=== PATIENT | female | born 1985 | race Caucasian/White ===

== ENCOUNTER 2021-04-23 15:52 | Inpatient (IN) | payer BC ==
[~2021-04-23] VITALS: Ht 157.5 cm; Wt 65.8 kg
[2021-04-23 15:55] VITALS: BP 147/74
--- NOTE | 2021-04-23 16:09 | NUR ---
TO ER BED 12
[2021-04-23] MEDS ORDERED: IBUP-2213 PO (16:22)
--- NOTE | 2021-04-23 16:30 | NUR ---
ULTRASOUND AT BED SIDE, ERMD NOTIFIED.
--- NOTE | 2021-04-23 16:37 | NUR ---
DR. MACKENZIE IS PERFORMING PELVIC EXAM AT BEDSIDE WITH FEMALE CHAPPERONE.
--- NOTE | 2021-04-23 16:40 | NUR ---
LAB SPECIMEN COLLECTED AND GIVEN TO LAB
[2021-04-23] MEDS ORDERED: ACETAMINOPHEN EXTRA STRENGTH 500 MG TAB ONE (16:41)
[2021-04-23] MEDS ORDERED: NACL 0.9% 1,000 ML IV ONE (16:45)
--- NOTE | 2021-04-23 16:50 | NUR ---
ULTRASOUND AT PATIENT BEDSIDE
--- NOTE | 2021-04-23 16:57 | NUR ---
MEAGAN SPECIMEN COLLECTED AND TAKEN TO LAB
[2021-04-23 17:22] LABS: BASOPHILS % (AUTO) 0.3 % (0.0-2.0); EOSINOPHILS % (AUTO) 0.5 % (0.0-4.0); HEMATOCRIT 35.5 % (36-48); LYMPHOCYTES # (AUTO) 1.7 K/uL (2.5-16.5); LYMPHOCYTES % (AUTO) 16.8 % (20.5-51.1); MEAN CORPUSCULAR HEMOGLOBIN 28 pg (27-31); MEAN CORPUSCULAR HGB CONC 34 g/dL (33-37); MONOCYTES # (AUTO) 0.6 K/uL (0.8-1.0); MONOCYTES % (AUTO) 5.9 % (1.7-9.3); NEUTROPHILS # (AUTO) 7.5 K/uL (1.8-7.7); NEUTROPHILS % (AUTO) 76.5 % (42.2-75.2); PLATELET COUNT (AUTO) 190 K/uL (140-450); RED BLOOD CELL COUNT(AUTO) 4.33 MIL/uL (4.20-5.40); RED CELL DISTRIBUTION WIDTH 14.6 % (11.6-13.7); WHITE BLOOD COUNT (AUTO) 9.8 K/uL (4.8-10.8)
--- NOTE | 2021-04-23 17:35 | NUR ---
# 16 FR Rodriguez catheter with 10 ml utilizing sterile technique. Immediate return of 20 ml CLEAR urine noted. Bedside drainage bag placed below level of bladder. Urine sample collected and sent to lab. Pt tolerated procedure WELL.
[2021-04-23] MEDS ORDERED: ACETAMINOPHEN 325 MG TAB PO ONE (17:50)
[2021-04-23 18:21] LABS: ALBUMIN 3.4 g/dL (3.4-5.0); CARBON DIOXIDE 22.5 mmol/L (21-32); CREATININE 0.7 mg/dL (0.6-1.3); POTASSIUM 3.5 mmol/L (3.5-5.1); TOTAL BILIRUBIN 0.3 mg/dL (0.0-1.0)
--- NOTE | 2021-04-23 18:55 | NUR ---
LABS DRAWN AND GIVEN TO PAUL HUMPHREY TECH
[2021-04-23 19:07] LABS: BASOPHILS % (AUTO) 0.3 % (0.0-2.0); EOSINOPHILS % (AUTO) 0.3 % (0.0-4.0); HEMATOCRIT 28.7 % (36-48); HEMOGLOBIN 9.8 g/dL (12.0-16.0); LYMPHOCYTES # (AUTO) 1.6 K/uL (2.5-16.5); LYMPHOCYTES % (AUTO) 13.6 % (20.5-51.1); MEAN CORPUSCULAR HEMOGLOBIN 28 pg (27-31); MEAN CORPUSCULAR HGB CONC 34 g/dL (33-37); MEAN CORPUSCULAR VOLUME 81.7 fL (80-94); MONOCYTES # (AUTO) 0.6 K/uL (0.8-1.0); MONOCYTES % (AUTO) 4.9 % (1.7-9.3); NEUTROPHILS # (AUTO) 9.7 K/uL (1.8-7.7); NEUTROPHILS % (AUTO) 80.9 % (42.2-75.2); PLATELET COUNT (AUTO) 162 K/uL (140-450); RED BLOOD CELL COUNT(AUTO) 3.51 MIL/uL (4.20-5.40); RED CELL DISTRIBUTION WIDTH 14.5 % (11.6-13.7); WHITE BLOOD COUNT (AUTO) 11.9 K/uL (4.8-10.8)
[2021-04-23] MEDS ORDERED: ONDANSETRON 4 MG/2 ML VIAL ONE (19:17)
--- NOTE | 2021-04-23 19:21 | NUR ---
Pt report given to RABIA RENEE. Transfer of care at this time.
--- NOTE | 2021-04-23 19:22 | NUR ---
PT HAD AN EPISODE OF VOMITING. AT BEDSIDE, VERBAL ORDER FOR IVP ZOFRAN 4MG/ML.ORDER CARRIED OUT. PT CLEANED UP AND CHANGED AND REPOSITIONED. ALL NEEDS MET AT THIS TIME. BED LOCKED IN LOWEST POSITION, SIDE RAILS X2.
--- NOTE | 2021-04-23 19:23 | NUR ---
Chart checked and completed. The patient's care was reviewed and supervised by Maxine Lara, RN, RN.
[2021-04-23] MEDS ORDERED: ONDANSETRON 4 MG/2 ML VIAL IVP ONE (19:50)
[2021-04-23] MEDS ORDERED: MISOPROSTOL 100 MCG TAB PO ONE (20:45)
--- NOTE | 2021-04-23 21:22 | NUR ---
UPDATED ON PT. Addendum: 04/23/21 at 2123 by [facility] 'S MED STUDENT UPDATED ON PT STATUS.
[2021-04-23] MEDS ORDERED: ACETAMINOPHEN 325 MG TAB PO PRN (21:45)
[2021-04-23] MEDS ORDERED: ONDANSETRON 4 MG/2 ML VIAL IVP PRN (21:45)
[2021-04-23] MEDS ORDERED: MAGNESIUM OXIDE 400 MG TAB PO PRN (21:45)
[2021-04-23] MEDS ORDERED: HYDROcodone/APAP 5/325 MG 1 TAB TAB PO PRN (21:45)
[2021-04-23] MEDS ORDERED: MORPHINE SULFATE 4 MG/ML SYR IVP PRN (21:45)
[2021-04-23] MEDS ORDERED: POTASSIUM CHLORIDE 10 MEQ TABER PO PRN (21:45)
[2021-04-23] MEDS ORDERED: MAG SULF 2000 MG/WATER PREMIX 50 ML IV PRN (21:45)
[2021-04-23] MEDS ORDERED: KCL 20 MEQ/WATER INJ PREMIX 200 ML IV PRN (21:45)
[2021-04-23] MEDS: NACL 0.9% 1,000 ML IV SCH (22:28)
--- NOTE | 2021-04-23 22:29 | NUR ---
PT CHANGED, SATURDATED A PAD, CLOTS PRESENT. VSS. PT IS IN STABLE CONDITION. PT COMPLAINED OF BACK AND ABD PAIN. PT REPOSITIONED, PAIN CONTINUED. PT HAS PAIN MEDICATION PRN. ORDERS CARRIED OUT.
--- NOTE | 2021-04-23 23:44 | NUR ---
PT REPORTED FEELING NAUSEOUS AND WEAK. PT SATURATED ANOTHER BED PAD, A FEW CLOTS PRESENT. BP DROPPED 89/54 PT REPOSITIONED BP AT 82/44.
[2021-04-23 23:45] LABS: APPEARANCE,URINE CLEAR (CLEAR); BILIRUBIN,URINE NEGATIVE (NEGATIVE); BLOOD, URINE 3+ (NEGATIVE); COLOR,URINE RED (YELLOW); LEUKOCYTE ESTERASE ,URINE TRACE (NEGATIVE); NITRITE, URINE POSITIVE (NEGATIVE); UGLUCOSE TRACE (NEGATIVE)
[2021-04-23 23:46] LABS: RBC,URINE TOO NUMEROUS TO COUN /HPF (0-5); WBC,URINE 0-5 /HPF (0-5)
--- NOTE | 2021-04-23 23:51 | NUR ---
PAGED DR. GAMEZ
[2021-04-24] MEDS ORDERED: NACL 0.9% 1,000 ML IV ONE
--- NOTE | 2021-04-24 | NUR ---
RECEIVED FOLLOWING ORDERS FROM - REPEAT CBC STAT AND 1L BOLUS OF NS. ORDERS CARRIED OUT.
[2021-04-24 00:09] LABS: BASOPHILS % (AUTO) 0.3 % (0.0-2.0); EOSINOPHILS % (AUTO) 0.3 % (0.0-4.0); HEMATOCRIT 25.2 % (36-48); HEMOGLOBIN 8.6 g/dL (12.0-16.0); LYMPHOCYTES # (AUTO) 1.3 K/uL (2.5-16.5); LYMPHOCYTES % (AUTO) 18.9 % (20.5-51.1); MEAN CORPUSCULAR HEMOGLOBIN 28 pg (27-31); MEAN CORPUSCULAR HGB CONC 34 g/dL (33-37); MEAN CORPUSCULAR VOLUME 81.5 fL (80-94); MONOCYTES # (AUTO) 0.4 K/uL (0.8-1.0); MONOCYTES % (AUTO) 5.4 % (1.7-9.3); NEUTROPHILS # (AUTO) 5.1 K/uL (1.8-7.7); NEUTROPHILS % (AUTO) 75.1 % (42.2-75.2); PLATELET COUNT (AUTO) 146 K/uL (140-450); RED BLOOD CELL COUNT(AUTO) 3.09 MIL/uL (4.20-5.40); RED CELL DISTRIBUTION WIDTH 14.6 % (11.6-13.7); WHITE BLOOD COUNT (AUTO) 6.8 K/uL (4.8-10.8)
--- NOTE | 2021-04-24 00:26 | NUR ---
PAGED FOR HGB UPDATE.
--- NOTE | 2021-04-24 02:55 | NUR ---
PT CHANGED AND REPOSITIONED. NO CLOTS PRESENT, BLEEDING CONTINUES BUT NOT SATURATION. VSS. PT IS IN STABLE CONDITION. BED LOCKED IN LOWEST POSITION, SIDE RAILS X2.
--- NOTE | 2021-04-24 04:14 | NUR ---
LAB AT BEDSIDE.
[2021-04-24 04:30] LABS: BASOPHILS % (AUTO) 0.2 % (0.0-2.0); HEMATOCRIT 21.7 % (36-48); HEMOGLOBIN 7.4 g/dL (12.0-16.0); LYMPHOCYTES # (AUTO) 0.9 K/uL (2.5-16.5); LYMPHOCYTES % (AUTO) 12.7 % (20.5-51.1); MEAN CORPUSCULAR HEMOGLOBIN 28 pg (27-31); MEAN CORPUSCULAR HGB CONC 34 g/dL (33-37); MONOCYTES # (AUTO) 0.2 K/uL (0.8-1.0); MONOCYTES % (AUTO) 3.5 % (1.7-9.3); NEUTROPHILS # (AUTO) 5.7 K/uL (1.8-7.7); NEUTROPHILS % (AUTO) 83.6 % (42.2-75.2); PLATELET COUNT (AUTO) 132 K/uL (140-450); RED BLOOD CELL COUNT(AUTO) 2.65 MIL/uL (4.20-5.40); RED CELL DISTRIBUTION WIDTH 14.6 % (11.6-13.7); WHITE BLOOD COUNT (AUTO) 6.8 K/uL (4.8-10.8)
[2021-04-24 04:48] LABS: ALBUMIN 2.5 g/dL (3.4-5.0); ANION GAP 11.3 (8-16); CARBON DIOXIDE 20.3 mmol/L (21-32); CREATININE 0.6 mg/dL (0.6-1.3); MAGNESIUM 1.8 mg/dL (1.8-2.4); POTASSIUM 3.6 mmol/L (3.5-5.1); TOTAL BILIRUBIN 0.3 mg/dL (0.0-1.0)
--- NOTE | 2021-04-24 04:59 | NUR ---
PT CHANGED, BLEEDING CONTINUES. NO CLOTS PRESENT. VSS. PT IS IN STABLE CONDITION. ALL NEEDS MET AT THIS TIME. BED LOCKED IN LOWEST POSITION, SIDE RAILS X2.
--- NOTE | 2021-04-24 05:05 | NUR ---
PAGED ABOUT LAB VALUES. WAITING FOR CALL BACK.
--- NOTE | 2021-04-24 05:07 | NUR ---
RECEIVED FOLLOWING ORDERS FROM - BELL AND SCREEN FOR 3 UNITS, FOR NOW TRANSFUSE 1 UNIT. ORDERS CARRIED.
--- NOTE | 2021-04-24 05:20 | NUR ---
BLOOD COLLECTED AND GIVEN TO MONIKA.
--- NOTE | 2021-04-24 05:30 | NUR ---
CONSENT OBTAINED FOR BLOOD.
[2021-04-24 05:36] LABS: PROTHROMBIN TIME 10.7 secs (10.8-13.4)
--- NOTE | 2021-04-24 06:49 | NUR ---
f/c output of 800cc. pt changed, no clots present. bleeding continues.
--- NOTE | 2021-04-24 07:17 | NUR ---
REPORT GIVEN TO RABIA SELLERS. TRANSFER OF CARE AT THIS TIME.
--- NOTE | 2021-04-24 07:17 | NUR ---
Report and continuation of care received from RABIA Persaud
--- NOTE | 2021-04-24 07:40 | NUR ---
Patient states headache at this time. Tylenol PRN to be given.
--- NOTE | 2021-04-24 08:30 | NUR ---
MRSA walked to lab and handed to CPT Jennifer
--- NOTE | 2021-04-24 08:32 | NUR ---
Blood bank called states blood is ready.
[2021-04-24] MEDS: DOCUSATE SODIUM 100 MG GELCAP PO SCH (08:40)
--- NOTE | 2021-04-24 08:50 | NUR ---
Consent signed per patient agreeing to administration of blood. Blood has been type and crossmatched. Blood sent from blood bank. Information on unit of blood checked against patient wristband at bedside by two nurses. All information matches. Patient or responsible alliance party informed of potential complications associated with blood transfusion. Informed of possible transfusion reaction symptoms. Aware of need to notify nurse at once of itching, shortness of breath, flushing, feeling of impending doom, or other symptoms not previously present. Vital signs taken within 5 minutes prior to initiation of transfusion. RN will remain with patient for first 15 minutes of transfusion at which time vital signs will be re-assessed.
--- NOTE | 2021-04-24 09:10 | NUR ---
Pt reports + relief to headache 3/10 at this time. All pt needs met.
--- NOTE | 2021-04-24 09:30 | NUR ---
Pt denies any SOB, chills, hives, chest pain. Blood transfusion continued. monitor and storage bin tender in place. VSS RR even/unlabored SpO2 100% on room air.
--- NOTE | 2021-04-24 10:00 | NUR ---
Patient states saturated corina. Female RN back sizer
[2021-04-24] MEDS: NACL 0.9% 1,000 ML IV SCH ×2 (11:20→22:45)
[2021-04-24] MEDS ORDERED: MISOPROSTOL 100 MCG TAB PO SCH (12:00)
--- NOTE | 2021-04-24 14:47 | NUR ---
BP cuff 105/37 on L arm. Patient denies dizziness, BAEZ, nausea, vomiting, fever/chills, chest pain, SOB, blurry vision. monitoring manager in place. Bed locked in lowest position, side rails x 1.
--- NOTE | 2021-04-24 15:33 | NUR ---
PATIENT HAS BEEN SCREENED AND CATEGORIZED LOW NUTRITION RISK. PATIENT WILL BE SEEN WITHIN 7 DAYS OF ADMISSION. 04/30/[address]
--- NOTE | 2021-04-24 15:55 | NUR ---
Ptaient with both eyes closed resting in position of comfort. monitoring coordinator in place. Pt denies any symptoms at this time. Bed locked in lowest position, side rails x 1.
--- NOTE | 2021-04-24 16:21 | NUR ---
Report given to RABIA Padilla.
--- NOTE | 2021-04-24 16:25 | NUR ---
600mL removed from Rodriguez catheter and discarded.
--- NOTE | 2021-04-24 16:30 | NUR ---
Patient will be admitted to care of Dr. Byers. Admited to [facility]. Will go to room 119B. Belongings list completed. Report to RABIA Padilla
--- NOTE | 2021-04-24 16:35 | NUR ---
RECEIVED PT FROM ER NURSE FOR CONTINUITY OF CARE. PT ARRIVED VIA WHEELCHAIR AND TRANSFERRED TO BED. PT STATES SHE IS FEELING DIZZY. PT NOW IN BED RESTING COMFORTABLY. A&OX4. ANSWERS QUESTIONS APPROPRIATELY. DENIES ANY PAIN. INTERMITTENT CRAMP IN LOWER STOMACH STATED BY PT. PT IS AMBULATORY INDEPENDENTLY. BROWN CATH IN PLACE. DIAPER IN PLACE. MINIMAL BLOOD NOTED ON DIAPER. PT STATES SHE ONLY CHANGED PAD ONCE TODAY WITH MODERATE AMOUNT OF BLOOD ON PAD. PT IS STABLE. VS ARE STABLE. PLAN OF CARE DISCUSSED.
[2021-04-24 16:40] VITALS: BP 100/56
--- NOTE | 2021-04-24 17:51 | NUR ---
CALLED BLOOD BANK TO ASK IF THE OTHER UNIT OF BLOOD WAS READY FOR THE PT. MESSAGED DR. PATE TO ASK IF HE WOULD LIKE ME TO GIVE THE SECOND UNIT OF BLOOD OR RECHECK THE CBC PRIOR TO ADMINISTRATION OF BLOOD. WILL WAIT FOR RESPONSE.
--- NOTE | 2021-04-24 17:57 | NUR ---
RECEIVED MESSAGE BACK FROM DR. PATE TO GIVE THE SECOND UNIT OF BLOOD. WILL SWATCH CUTTER FROM BLOOD BANK SHORTLY.
[2021-04-24] MEDS: MISOPROSTOL 100 MCG TAB PO SCH (18:30)
--- NOTE | 2021-04-24 18:30 | NUR ---
BLOOD TRANSFUSION STARTED. VITAL SIGNS ARE STABLE AT THIS TIME. BREATHING UNLABORED ON RA. IV IS PATENT AND INFUSING BLOOD PRODUCT. VERIFIED BY SIOBHAN CAMARILLO. WILL CONTINUE TO MONITOR PT PER PROTOCOL.
--- NOTE | 2021-04-24 19:06 | NUR ---
WILL ENDORSE PT TO CERTIFIED LEGAL INVESTIGATOR NURSE FOR CONTINUITY OF CARE. PT IS STABLE. BLOOD TRANSFUSION STILL INFUSING. NO ADVERSE REACTIONS NOTED. PLAN OF CARE DISCUSSED.
--- NOTE | 2021-04-24 19:15 | NUR ---
RECD. RESTING IN BED, AWAKE, A/OX4. RESPIRATION EVEN AND UNLABORED. IV OF NS INFUSING AT 80 ML/HR, RIGHT AC G18. BLOOD TRANSFUSION ON GOING AT 100 ML/HR AT THE LEFT ACG18. INDEPENDENT, AMBULATORY TO THE BR. WILL CONTINUE TO MONITOR FOR ANY REACTION. DENIES PAIN 0/10.
[2021-04-24 20:00] VITALS: BP 102/56
--- NOTE | 2021-04-24 23:55 | NUR ---
FOLLOW UP WITH BLOOD BANK STAFF, REGARDING THE THIRD UNIT OF PACKED CELLS TO BE INFUSED FOR PATIENT. STATED THERE'S NO AVAILABLE BLOOD NOW, [facility] IS NOT GIVING BLOOD NOW UNLESS IT IS AN EMERGENCY. ORDERED H & H FOR PATIENT. CHARGE NURSE MANUELITO BARILLAS.
[2021-04-25] VITALS: BP 99/62
[2021-04-25 00:14] LABS: HEMATOCRIT 26.4 % (36-48)
--- NOTE | 2021-04-25 01:20 | NUR ---
INFORMED DR. REY REGARDING ONLY TWO UNIT PACKED CELLS INFUSED. STATED THAT IS OK.
[2021-04-25] MEDS: MISOPROSTOL 100 MCG TAB PO SCH ×3 (01:53→12:35)
--- NOTE | 2021-04-25 02:01 | NUR ---
Patient's Plan of Care was discussed and reviewed with OFFENDER EMPLOYMENT SPECIALIST: YOSELIN FRANKLIN
--- NOTE | 2021-04-25 03:30 | NUR ---
AMBULATED TO TO HAVE BM. PASSED OUT A BIG BLOOD CLOT, VERBALIZED IT COMES OUT OF HER VAGINA. CHANGED PADS, NOTED ONLY MODERATE THIN AMOUNT OF BLOOD IN THE PADS.
--- NOTE | 2021-04-25 05:30 | NUR ---
RESTING IN BED, NO RESPIRATORY DISTRESS NOTED. CONDITION REMAIN STABLE.
[2021-04-25 05:35] LABS: BASOPHILS % (AUTO) 0.3 % (0.0-2.0); EOSINOPHILS # (AUTO) 0.1 K/uL (0-0.4); EOSINOPHILS % (AUTO) 0.9 % (0.0-4.0); HEMATOCRIT 27.5 % (36-48); HEMOGLOBIN 9.5 g/dL (12.0-16.0); LYMPHOCYTES # (AUTO) 1.6 K/uL (2.5-16.5); LYMPHOCYTES % (AUTO) 24.3 % (20.5-51.1); MEAN CORPUSCULAR HEMOGLOBIN 29 pg (27-31); MEAN CORPUSCULAR HGB CONC 35 g/dL (33-37); MEAN CORPUSCULAR VOLUME 84.1 fL (80-94); MONOCYTES # (AUTO) 0.4 K/uL (0.8-1.0); MONOCYTES % (AUTO) 6.1 % (1.7-9.3); NEUTROPHILS # (AUTO) 4.5 K/uL (1.8-7.7); NEUTROPHILS % (AUTO) 68.4 % (42.2-75.2); PLATELET COUNT (AUTO) 118 K/uL (140-450); RED BLOOD CELL COUNT(AUTO) 3.27 MIL/uL (4.20-5.40); WHITE BLOOD COUNT (AUTO) 6.5 K/uL (4.8-10.8)
[2021-04-25 05:58] LABS: ALBUMIN 2.7 g/dL (3.4-5.0); ANION GAP 11.4 (8-16); CREATININE 0.6 mg/dL (0.6-1.3); POTASSIUM 3.4 mmol/L (3.5-5.1); TOTAL BILIRUBIN 0.4 mg/dL (0.0-1.0)
[2021-04-25 06:18] LABS: PROTHROMBIN TIME 10.4 secs (10.8-13.4)
--- NOTE | 2021-04-25 07:25 | NUR ---
ENDORSED TO AM SHIFT NURSE FOR CONTINUITY OF CARE.
[2021-04-25 08:00] VITALS: BP 115/71
[2021-04-25] MEDS: DOCUSATE SODIUM 100 MG GELCAP PO SCH (09:35)
--- NOTE | 2021-04-25 09:36 | NUR ---
ADMINISTERED ALL SCHEDULED MEDICATIONS. EDUCATED PT ON MEDS ADMINISTERED. PT STATED AN UNDERSTANDING OF ALL INFORMATION PROVIDED. WILL CONTINUE TO MONITOR.
[2021-04-25] MEDS: NACL 0.9% 1,000 ML IV SCH (11:15)
--- NOTE | 2021-04-25 12:48 | NUR ---
PERFORMED COVID RAPID TEST. WILL CONTINUE TO MONITOR.
--- NOTE | 2021-04-25 13:30 | NUR ---
RADIOLOGY AT BEDSIDE TO PERFORM ULTRA SOUND. WILL CONTINUE TO MONITOR.
--- NOTE | 2021-04-25 14:45 | NUR ---
AT BEDSIDE. SPEAKING TO PT REGARDING POSSIBLE SURGICAL INTERVENTION. PER MD, PT IS ABLE TO DISCHARGE HOME. NO SURGICAL INTERVENTION REQUIRED.
[2021-04-25 15:35] VITALS: BP 115/71
--- NOTE | 2021-04-25 16:21 | NUR ---
WENT OVER DISCHARGE PAPERWORK WITH PT. ANSWERED ALL QUESTIONS. PT SIGNED DISCHARGE PAPERWORK. REMOVED IV. IV CATHETER INTACT. REMOVED WRISTBAND. PT AMBULATED OFF UNIT ACCOMPANIED BY AND STAFF. OFFERED WHEELCHAIR, BUT PT STATED SHE WANTED TO WALK.
== END 2021-04-25 17:29 | disposition home or self-care (01) | DRG 760 ==
LOC: MED 15:52 → MMU 21:48 → MTU 04-24 16:15
PROVIDERS: ADMIT Internal Medicine; ATTEND Internal Medicine
PROC: 30233N1 Transfusion of Nonautologous Red Blood Cells into Peripheral Vein, Percutaneous Approach (ICD-10-PCS; principal; 2021-04-24)
DX: N93.9 Abnormal uterine and vaginal bleeding, unspecified (principal); D62 Acute posthemorrhagic anemia; Z20.822 Contact with and (suspected) exposure to COVID-19
CPT/HCPCS: 36415; 51702; 76817; 76830; 80053; 81001; 83735; 84702; 85018; 85025; 85610; 85730; 86886; 86900; 86901; 86920; 87081; 87086; 96361; 96374; 99291; J2405; P9016; Q0092